=== PATIENT | female | born 1995 | race Asian ===

== ENCOUNTER 2019-11-20 16:14 | Inpatient (IN) | payer BC, MEDICAID ==
[~2019-11-20] VITALS: Ht 162.6 cm; Wt 65.8 kg
[2019-11-20] MEDS ORDERED: LR 1,000 ML IV ONE (20:51)
[2019-11-20] MEDS ORDERED: OXYTOCIN/0.9 % SODIUM CHLORIDE 1,000 ML IV SCH (20:51)
[2019-11-20 21:23] LABS: BASOPHILS # (AUTO) 0.1 K/uL (0.0-0.2); BASOPHILS % (AUTO) 1.4 % (0.0-2.0); EOSINOPHILS # (AUTO) 0.3 K/uL (0.0-0.4); EOSINOPHILS % (AUTO) 3.7 % (0.0-4.0); HEMATOCRIT 35.6 % (36-48); HEMOGLOBIN 12.3 g/dL (12.0-16.0); LYMPHOCYTES # (AUTO) 1.1 K/uL (1.0-5.5); LYMPHOCYTES % (AUTO) 15.1 % (20.5-51.5); MEAN CORPUSCULAR HEMOGLOBIN 34 pg (27-31); MEAN CORPUSCULAR HGB CONC 35 % (32-36); MEAN CORPUSCULAR VOLUME 97 fL (79.0-98.0); MONOCYTES # (AUTO) 0.4 K/uL (0.0-1.0); MONOCYTES % (AUTO) 5.3 % (1.7-9.3); NEUTROPHILS # (AUTO) 5.2 K/uL (1.8-7.7); NEUTROPHILS % (AUTO) 74.5 % (40.0-70.0); PLATELET COUNT (AUTO) 236 K/uL (130-430); RED BLOOD CELL COUNT(AUTO) 3.68 MIL/uL (4.2-6.2); RED CELL DISTRIBUTION WIDTH 12.8 % (9.0-15.0)
[2019-11-20] MEDS: LR 1,000 ML IV SCH (21:41)
[2019-11-20 22:06] VITALS: BP_SYST 120
[2019-11-20] MEDS ORDERED: MISOPROSTOL 100 MCG TABLET (CYTOTEC) VG SCH (23:00)
[2019-11-21] MEDS: LR 1,000 ML IV SCH (01:45)
[2019-11-21] MEDS ORDERED: MORPHINE 4 MG/ML INJ. SYRINGE IVP PRN (05:30)
[2019-11-21] MEDS ORDERED: MORPHINE SULFATE 10 MG/ML VIAL ONE (05:42)
[2019-11-21] MEDS ORDERED: MEPERIDINE HCL/PF 25 MG/ML DISP.SYRIN IVP ONE (06:00)
[2019-11-21] MEDS ORDERED: MEPERIDINE HCL/PF 25 MG/ML DISP.SYRIN ONE (06:17)
[2019-11-21] MEDS ORDERED: ROPIVACAINE HCL/PF 0.2% 200 ML ONE (06:18)
[2019-11-21] MEDS ORDERED: fentaNYL CITRATE/PF 100 MCG/2 ML AMP ONE (06:18)
[2019-11-21] MEDS ORDERED: LR 500 ML IV ONE (07:42)
[2019-11-21] MEDS ORDERED: FENT2mCg/mL-ROPIVA0.2%/NS EPID 200 ML EP SCH (07:45)
[2019-11-21] MEDS ORDERED: HYDROmorphone 2 MG/ML VIAL ONE (13:00)
[2019-11-21] MEDS ORDERED: OXYTOCIN/0.9 % SODIUM CHLORIDE 1,000 ML IV ONE (17:25)
[2019-11-21] MEDS ORDERED: LANOLIN 7 GM OINT. TP PRN (17:30)
[2019-11-21] MEDS ORDERED: OXYCODONE/ACETAMINOPHEN 5-325 TABLET PO PRN (17:30)
[2019-11-21] MEDS ORDERED: WITCH HAZEL LEAF 1 MED.PAD MED.PAD TP PRN (17:30)
[2019-11-21] MEDS ORDERED: HYDROcodone/ACETAMIN 5-325 MG TAB (NORCO/ VICODIN) PO PRN (17:30)
[2019-11-21] MEDS ORDERED: DERMOPLAST SPRAY TP PRN (17:30)
[2019-11-21] MEDS ORDERED: DERMOPLAST SPRAY TP ONE (17:51)
[2019-11-21] MEDS ORDERED: WITCH HAZEL LEAF 1 MED.PAD MED.PAD TP ONE (17:51)
[2019-11-21] MEDS ORDERED: IBUPROFEN 600 MG TABLET ONE (18:28)
[2019-11-21] MEDS ORDERED: TEMAZEPAM 15 MG CAPSULE PO PRN (21:00)
[2019-11-21] MEDS: DOCUSATE SODIUM 100 MG CAPSULE PO PRN (21:19)
[2019-11-21] MEDS: OXYCODONE/ACETAMINOPHEN 5-325 TABLET PO PRN (21:19)
[2019-11-21] MEDS: IBUPROFEN 600 MG TABLET PO SCH (23:59)
[2019-11-22] MEDS: DOCUSATE SODIUM 100 MG CAPSULE PO PRN (06:08)
[2019-11-22] MEDS: IBUPROFEN 600 MG TABLET PO SCH ×3 (06:08→18:33)
[2019-11-22] MEDS: OXYCODONE/ACETAMINOPHEN 5-325 TABLET PO PRN ×3 (06:09→20:56)
[2019-11-22 06:34] LABS: HEMOGLOBIN 9.9 g/dL (12.0-16.0)
[2019-11-22] MEDS ORDERED: MINERAL OIL 30 ML UDC PO ONE (14:36)
[2019-11-23] MEDS: IBUPROFEN 600 MG TABLET PO SCH ×3 (00:06→12:04)
[2019-11-23] MEDS: OXYCODONE/ACETAMINOPHEN 5-325 TABLET PO PRN (00:12)
[2019-11-23] MEDS: DOCUSATE SODIUM 100 MG CAPSULE PO PRN (06:10)
== END 2019-11-23 14:28 | disposition home or self-care (01) | DRG 560 ==
LOC: SPU 20:25
PROVIDERS: ADMIT Obstetrics & Gynecology; ATTEND Obstetrics & Gynecology
PROC: 10E0XZZ Delivery of Products of Conception, External Approach (ICD-10-PCS; principal; 2019-11-21)
PROC: 0HQ9XZZ Repair Perineum Skin, External Approach (ICD-10-PCS; 2019-11-21)
PROC: 3E033VJ Introduction of Other Hormone into Peripheral Vein, Percutaneous Approach (ICD-10-PCS; 2019-11-21)
PROC: 3E0R3BZ Introduction of Anesthetic Agent into Spinal Canal, Percutaneous Approach (ICD-10-PCS; 2019-11-21)
PROC: 00HU33Z Insertion of Infusion Device into Spinal Canal, Percutaneous Approach (ICD-10-PCS; 2019-11-21)
DX: O70.0 First degree perineal laceration during delivery (principal); R71.0 Precipitous drop in hematocrit; Z37.0 Single live birth; Z3A.39 39 weeks gestation of pregnancy
CPT/HCPCS: 36415; 85018-TC; 85025; 86592; 86886; 86900; 86901; J1170; J2175; J2270; J2590; J3010; J7120